=== PATIENT | female | born 2000 | race Caucasian/White ===

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

== ENCOUNTER 2021-02-13 22:05 | Emergency (ER) | payer OTHER ==
[~2021-02-13] VITALS: Ht 175.3 cm; Wt 110.2 kg
[2021-02-13 22:07] VITALS: BP 175/88
== END 2021-02-14 03:43 | disposition left against medical advice (07) ==
LOC: M ED 22:05
DX: Z53.29 Procedure and treatment not carried out because of patient's decision for other reasons (principal)

== ENCOUNTER 2023-06-01 20:01 | Emergency (ER) | payer OTHER ==
[~2023-06-01] VITALS: Ht 176.5 cm; Wt 106.7 kg
[2023-06-02] MEDS ORDERED: NS 1,000 ML IV ONE (00:40)
[2023-06-02] MEDS ORDERED: diphenhydrAMINE 50MG/ML VIAL IV STA (00:40)
[2023-06-02] MEDS ORDERED: FAMOTIDINE 20MG/2ML VIAL IVP ONE (00:40)
[2023-06-02] MEDS ORDERED: dexAMETHasone 20MG/5ML VIAL IV ONE (00:40)
[2023-06-02] MEDS ORDERED: PRED20TA PO (02:30)
[2023-06-02 02:46] VITALS: BP 131/66; TEMP 98.3; O2SAT 97
== END 2023-06-02 02:51 | disposition home or self-care (01) ==
LOC: M ED 20:01
DX: T78.02XA Anaphylactic reaction due to shellfish (crustaceans), initial encounter (principal); Z88.2 Allergy status to sulfonamides
CPT/HCPCS: 96374; 96375; 99284; J1100; J1200; S0028

== ENCOUNTER 2025-03-30 10:59 | Emergency (ER) | payer OTHER ==
[~2025-03-30] VITALS: Ht 177.8 cm; Wt 107.3 kg
[~2025-03-30 10:59] MED LIST changes: +LAMO-18; -LAMO25TA4; +PRED20TA PO
[2025-03-30] MEDS: FLUORESCEIN OPHTH 1 MG STRIP OS ONE (11:55)
[2025-03-30] MEDS: PROPARACAINE 0.5% OPHTH SOL 15ML OS ONE (11:55)
[2025-03-30] MEDS ORDERED: PRED10TA2 PO (12:13)
[2025-03-30 12:17] VITALS: BP 122/73; TEMP 99.8; O2SAT 98
== END 2025-03-30 12:20 | disposition home or self-care (01) ==
LOC: M ED 10:59
DX: H57.12 Ocular pain, left eye (principal); Z88.2 Allergy status to sulfonamides; Z79.52 Long term (current) use of systemic steroids